=== PATIENT | male | born 1955 | race Caucasian/White ===

== ENCOUNTER → 2017-05-07 | Outpatient (CLI) | payer BC | LOC: RAD 16:21 | DX: M25.572 Pain in left ankle and joints of left foot (principal); M19.072 Primary osteoarthritis, left ankle and foot | CPT/HCPCS: 73610 ==

== ENCOUNTER → 2020-12-04 | Outpatient (CLI) | payer BC | LOC: US 14:21 | DX: N50.89 Other specified disorders of the male genital organs (principal); N50.3 Cyst of epididymis | CPT/HCPCS: 76870 ==